=== PATIENT | female | born 1945 | race Caucasian/White ===

== ENCOUNTER 2020-06-11 10:25 | Day surgery (SDC) | payer OTHER ==
[2020-06-11] MEDS ORDERED: Zoledronic Acid/Mannitol/Water 5 MG/100 ML INFUS.BOT IV ONE (10:30)
[2020-06-11 15:10] VITALS: BP 143/90; TEMP 98; O2SAT 96
[2020-06-11 15:40] VITALS: BMI 26.4
== END 2020-06-11 12:08 | disposition home or self-care (01) ==
LOC: DS 10:25
PROVIDERS: ATTEND Clinical Nurse Specialist Women's Health
DX: M81.0 Age-related osteoporosis without current pathological fracture (principal)
CPT/HCPCS: 96365; J3489